=== PATIENT | female | born 1935 | race Caucasian/White ===

== ENCOUNTER 2017-11-06 14:55 | Inpatient (IN) | payer OTHER ==
[~2017-11-06] VITALS: Ht 170.2 cm; Wt 119.3 kg
--- NOTE | ~2017-11-06 | CON ---
[place], [place] REPORT OF CONSULTATION NAME: [facility]ON INGRAM [facility]: [id number] UNIT #: [id number] ROOM: 509 DOCTOR: DESTINI SANDERS MD BIRTHDATE: [birth year] DOS: 11/07/2017 HISTORY OF PRESENT ILLNESS: An 82-year-old patient who presented with chief complaint of dysuria and has been investigated and has had urine cultures done and results has been heavy gram-negative bacilli with greater than 100,000 population. Meanwhile, she has been complaining of nausea. Apparently, this nausea is chronic because she is telling me that she has a supply of antinausea medication at home. Chronically, she has been using. Lactic acid at the time of admission was 1. CBC: White blood cell was not elevated, indeed it was 4.4 with H and H of 10 and 37, microcytic indices. Comprehensive metabolic panel, GFR greater than 60. Electrolytes balance. GOT, GPT, liver function test normal. Chest x-ray was obtained normal. Chest, clear. Hemoglobin A1c was 4.8. PAST MEDICAL HISTORY: Associated with obesity, diabetes mellitus, chronic lower back pain, peripheral neuropathy, rectal CA history, spinal stenosis history, difficulty ambulation. I see some evidence of confusion. PAST SURGICAL HISTORY: Hysterectomy, cholecystectomy and lower extremities surgical procedures. SOCIAL HISTORY: Nonsmoker, nonalcohol consumer. FAMILY HISTORY: Noncontributory. ALLERGIES: To no known medications. MEDICATIONS: Has been reviewed including omeprazole, thyroid supplementation, iron supplementation and hyperlipidemia. REVIEW OF SYSTEMS: HEENT: Denies double vision, blurred vision. RESPIRATORY: Denies acute shortness of breath. CARDIOVASCULAR: Denies acute chest pain. DIGESTIVE SYSTEM: No hematemesis, no hematochezia. PHYSICAL EXAMINATION: GENERAL: Morbidly obese patient with vital signs stable. HEENT: Head normocephalic, nontraumatic. Mouth and buccal mucosa benign. NECK: Supple, no thyromegaly, no cervical lymphadenopathy. CHEST: Symmetric anatomy, equal expansion. No wheeze, no rhonchi. HEART: Normal sinus rhythm, no gallop, no murmur. ABDOMEN: Obese, large, soft. Intra-abdominal organs cannot be palpated not based on abdominal exam. EXTREMITIES: 1+ edema bilaterally was noticed. NEUROLOGIC: Alert and oriented to time, confusion, cannot recall, basic information. Labs were reviewed, records reviewed. [place], [place] REPORT OF CONSULTATION NAME: TRISTON INGRAM UNIT #: [id number] ROOM: 509 DOCTOR: TOMMY BANUELOS,DESTINI BIRTHDATE: [birth year] IMPRESSION: Urinary tract infection, chronic history of nausea, which could be associated with her established diagnosis of diabetes mellitus without complications. However, controlled by diet. Other adjunctive diagnoses as outlined in paragraph of past medical, surgical history. We are going to continue with the PPI. We are going to continue with antibiotic therapy for urinary tract infection and the issue of borderline anemia, mixed microcytic can be addressed as outpatient. Antiemetic at the present time is going to be Zofran 4 mg q. 6 hours if needed. Thank you very much indeed for your kind referral. DESTINI SANDERS MD CM:CONSTR:REPORT OF CONSULTATION 1532 11/08/17 0204 interface
[~2017-11-06 14:55] MED LIST changes: -ATIVAN0.5 MG PO; -CETIRIZINE10 MG PO; -FEOSOL325 MG PO; -LIOTHYRONINE S25 MC1 PO; -OMEPRAZOLE40 MG PO; -ZOFRAN8 M1 PO
[2017-11-06 15:07] VITALS: BP 125/67
[2017-11-06 15:30] LABS: BASO % 0.7 % (0.0-1.0); EOS # 0.1 10*3/uL (0.0-0.4); EOS % 1.6 % (1.0-4.0); HEMOGLOBIN 10.2 g/dl (12.0-16.0); LYMPH # 0.7 10*3/uL (1.3-4.4); LYMPH % 16.1 % (27.0-41.0); MEAN CELL VOLUME 92.5 fl (81.0-99.0); MEAN CORPUSCULAR HGB 25.5 pg (27.0-31.0); MEAN CORPUSCULAR HGB CONC 27.6 g/dl (33.0-37.0); MEAN PLATELET VOLUME 9.4 fl (9.6-12.3); MONO # 0.5 10*3/uL (0.1-1.0); MONO % 10.9 % (3.0-9.0); NEUT # 3.1 10*3/uL (2.3-7.9); NEUT % 70.2 % (47.0-73.0); PLATELET COUNT AUTOMATED 163 10*3/uL (130-400); RED CELL DISTRI WIDTH 14.9 % (0-14.5); WHITE BLOOD COUNT 4.4 10*3/uL (4.8-10.8)
[2017-11-06 15:45] LABS: BILIRUBIN 1+ (NEGATIVE); BLOOD 3+ (NEGATIVE); CLARITY CLOUDY (CLEAR); COLOR YELLOW (YELLOW); GLUCOSE NEGATIVE (NEGATIVE); KETONE NEGATIVE (NEGATIVE); LEUKO ESTERASE 3+ (NEGATIVE); NITRITE NEGATIVE (NEGATIVE); PH 6.5 (5.0-9.0)
[2017-11-06 15:46] LABS: ALBUMIN 2.3 gm/dl (3.1-4.5); ALKALINE PHOSPHATASE 130 U/L (45-117); BUN 13 mg/dl (7-24); CHLORIDE 102 mmol/L (98-107); CREATININE 1.02 mg/dL (0.55-1.02); SGOT/AST 14 IU/L (3-35); SGPT/ALT 8 U/L (12-78); SODIUM 142 mmol/L (136-145); TOTAL PROTEIN 7.7 gm/dL (6.4-8.2)
[2017-11-06 15:51] LABS: WBC TNTC wbc/hpf (0-5)
[2017-11-06] MEDS ORDERED: OMEPRAZOLE40 MG PO (17:29)
[2017-11-06] MEDS ORDERED: CETIRIZINE10 MG PO (17:36)
[2017-11-06] MEDS ORDERED: ATIVAN0.5 MG PO (17:36)
[2017-11-06] MEDS ORDERED: FEOSOL325 MG PO (17:37)
[2017-11-06] MEDS ORDERED: LIOTHYRONINE S25 MC1 PO (17:39)
[2017-11-06] MEDS ORDERED: ZOFRAN8 M1 PO (17:39)
[2017-11-06 18:25] VITALS: BP 134/52
[2017-11-07] VITALS: BP 113/71
[2017-11-07 06:25] LABS: BASO % 0.6 % (0.0-1.0); EOS # 0.1 10*3/uL (0.0-0.4); EOS % 1.9 % (1.0-4.0); HEMATOCRIT 34.9 % (37.0-47.0); HEMOGLOBIN 9.6 g/dl (12.0-16.0); LYMPH # 0.6 10*3/uL (1.3-4.4); LYMPH % 15.9 % (27.0-41.0); MEAN CELL VOLUME 92.8 fl (81.0-99.0); MEAN CORPUSCULAR HGB 25.5 pg (27.0-31.0); MEAN CORPUSCULAR HGB CONC 27.5 g/dl (33.0-37.0); MEAN PLATELET VOLUME 9.2 fl (9.6-12.3); MONO # 0.4 10*3/uL (0.1-1.0); MONO % 12.3 % (3.0-9.0); NEUT # 2.5 10*3/uL (2.3-7.9); PLATELET COUNT AUTOMATED 140 10*3/uL (130-400); RED BLOOD COUNT 3.76 10*6/uL (4.10-5.10); WHITE BLOOD COUNT 3.6 10*3/uL (4.8-10.8)
[2017-11-07 06:56] LABS: BUN 13 mg/dl (7-24); CHLORIDE 103 mmol/L (98-107); CHOLESTEROL 82 mg/dL (<200); CREATININE 0.99 mg/dL (0.55-1.02); HDL CHOLESTEROL 38 mg/dl (40-60); LDL CHOLESTEROL 30 mg/dL (9-159); PHOSPHOROUS 3.8 mg/dL (2.5-4.9); SODIUM 142 mmol/L (136-145); TRIGLYCERIDES 69 mg/dl (<150); VLDL CHOLESTEROL 14 mg/dL (6-40)
[2017-11-07 07:02] LABS: THYROID STIM HORMONE (HS) 0.045 uIU/ml (0.358-4.75)
[2017-11-07 08:00] VITALS: BP 118/57
[2017-11-07 08:28] LABS: VITAMIN D, 25-HYDROXY 62.9 ng/mL (30-100)
[2017-11-07 12:00] VITALS: BP 117/52
[2017-11-07 16:00] VITALS: BP 124/39
[2017-11-07 21:06] VITALS: BP 121/51
[2017-11-08 00:12] VITALS: BP 115/40
[2017-11-08 06:04] LABS: BUN 15 mg/dl (7-24); CHLORIDE 103 mmol/L (98-107); CREATININE 0.86 mg/dL (0.55-1.02); POTASSIUM 3.9 mmol/L (3.5-5.1); SODIUM 142 mmol/L (136-145)
[2017-11-08 06:11] LABS: BASO % 0.5 % (0.0-1.0); EOS # 0.1 10*3/uL (0.0-0.4); EOS % 2.2 % (1.0-4.0); HEMATOCRIT 32.9 % (37.0-47.0); LYMPH # 0.7 10*3/uL (1.3-4.4); LYMPH % 17.7 % (27.0-41.0); MEAN CELL VOLUME 93.7 fl (81.0-99.0); MEAN CORPUSCULAR HGB 25.6 pg (27.0-31.0); MEAN CORPUSCULAR HGB CONC 27.4 g/dl (33.0-37.0); MEAN PLATELET VOLUME 9.8 fl (9.6-12.3); MONO # 0.4 10*3/uL (0.1-1.0); MONO % 10.8 % (3.0-9.0); NEUT # 2.5 10*3/uL (2.3-7.9); NEUT % 68.3 % (47.0-73.0); PLATELET COUNT AUTOMATED 144 10*3/uL (130-400); RED BLOOD COUNT 3.51 10*6/uL (4.10-5.10); RED CELL DISTRI WIDTH 14.8 % (0-14.5); WHITE BLOOD COUNT 3.7 10*3/uL (4.8-10.8)
[2017-11-08 08:00] VITALS: BP 137/48
[2017-11-08 12:00] VITALS: BP 123/54
[2017-11-08 16:00] VITALS: BP 125/43
[2017-11-08 20:00] VITALS: BP 117/49
[2017-11-09 06:44] LABS: BUN 17 mg/dl (7-24); CHLORIDE 104 mmol/L (98-107); CREATININE 0.87 mg/dL (0.55-1.02); FREE T4 1.06 ng/dl (0.76-1.46); POTASSIUM 3.9 mmol/L (3.5-5.1); SODIUM 144 mmol/L (136-145)
[2017-11-09 06:50] LABS: THYROID STIM HORMONE (HS) 0.072 uIU/ml (0.358-4.75)
[2017-11-09 08:00] VITALS: BP 116/50
[2017-11-09 12:00] VITALS: BP 103/46
[2017-11-09 16:00] VITALS: BP 98/48
[2017-11-09 20:00] VITALS: BP 120/50
[2017-11-10] VITALS: BP 111/49
[2017-11-10 08:00] VITALS: BP 109/50
[2017-11-10 12:00] VITALS: BP 111/54
[2017-11-10 16:00] VITALS: BP 127/58
[2017-11-10 20:00] VITALS: BP 119/75
[2017-11-11] VITALS: BP 110/63
[2017-11-11 08:00] VITALS: BP 120/70
== END 2017-11-11 11:59 | disposition home or self-care (01) | DRG 189 ==
LOC: ED 14:55 → EDHOLD 16:18 → 5E 16:18 → ICCU 16:48 → 5E 17:01
PROVIDERS: Internal Medicine; Nurse Practitioner Family; Student in an Organized Health Care Education/Training Program
DX: J96.01 Acute respiratory failure with hypoxia (principal); E43 Unspecified severe protein-calorie malnutrition; E11.42 Type 2 diabetes mellitus with diabetic polyneuropathy; Z99.81 Dependence on supplemental oxygen; N39.0 Urinary tract infection, site not specified; Z68.41 Body mass index [BMI] 40.0-44.9, adult; Z84.1 Family history of disorders of kidney and ureter; E83.41 Hypermagnesemia; D64.9 Anemia, unspecified; E66.09 Other obesity due to excess calories; M48.061 Spinal stenosis, lumbar region without neurogenic claudication; M51.26 Other intervertebral disc displacement, lumbar region; R74.8 Abnormal levels of other serum enzymes; I10 Essential (primary) hypertension; J44.9 Chronic obstructive pulmonary disease, unspecified; G89.29 Other chronic pain; Z78.9 Other specified health status; Z98.891 History of uterine scar from previous surgery; Z79.899 Other long term (current) drug therapy; Z79.84 Long term (current) use of oral hypoglycemic drugs; Z90.49 Acquired absence of other specified parts of digestive tract; Z90.710 Acquired absence of both cervix and uterus; Z85.048 Personal history of other malignant neoplasm of rectum, rectosigmoid junction, and anus; Z82.0 Family history of epilepsy and other diseases of the nervous system

== ENCOUNTER → 2017-11-06 | Outpatient (CLI) | payer OTHER ==
[~2017-11-06] MED LIST: ATIVAN0.5 MG PO; AZITHROMYCIN250 MG PO; CELEXA20 MG PO; CETIRIZINE10 MG PO; COZAAR50 MG PO; Duoneb 3ML 3 MG/3 ML INH; FEOSOL325 MG PO; FOLIC ACID1 MG PO; LASIX20 MG PO; LIOTHYRONINE S25 MC1 PO; LIPITOR10 MG PO; METFORMIN500 MG PO; MUCINEX600 MG PO; NEURONTIN300 MG PO; OMEPRAZOLE40 MG PO; PREDNISONE10 MG PO; SYNTHROID,LEV200 MCG PO; TENORMIN50 MG PO; ZOFRAN8 M1 PO
== END | disposition home or self-care (01) ==
LOC: WOUNDCARE 08:40
DX: T81.89XA Other complications of procedures, not elsewhere classified, initial encounter (principal); E11.40 Type 2 diabetes mellitus with diabetic neuropathy, unspecified; I10 Essential (primary) hypertension; Z85.89 Personal history of malignant neoplasm of other organs and systems; Y83.8 Other surgical procedures as the cause of abnormal reaction of the patient, or of later complication, without mention of misadventure at the time of the procedure; Y92.89 Other specified places as the place of occurrence of the external cause

== ENCOUNTER 2018-07-27 17:47 | Emergency (ER) | payer OTHER ==
[~2018-07-27] VITALS: Ht 350 cm; Wt 94.3 kg
[~2018-07-27 17:47] MED LIST changes: +ANORO ELLIPTA1 EACH INH; +ATIVAN0.5 MG PO; +CETIRIZINE10 MG PO; +FEOSOL325 MG PO; +LIOTHYRONINE S25 MC1 PO; +MACRODANTIN100 M1 PO; +NYSTOP60 GM T; +OMEPRAZOLE40 MG PO; -SYNTHROID,LEV200 MCG PO; +Synthroid,Lev150 MCG PO; +TRAMADOL HCL50 MG PO; +ZOFRAN8 M1 PO
[2018-07-27 18:30] LABS: BASO % 0.5 % (0.0-1.0); EOS # 0.1 10*3/uL (0.0-0.4); HEMATOCRIT 37.7 % (37.0-47.0); HEMOGLOBIN 11.2 g/dl (12.0-16.0); LYMPH # 0.7 10*3/uL (1.3-4.4); LYMPH % 11.7 % (27.0-41.0); MEAN CELL VOLUME 91.3 fl (81.0-99.0); MEAN CORPUSCULAR HGB 27.1 pg (27.0-31.0); MEAN CORPUSCULAR HGB CONC 29.7 g/dl (33.0-37.0); MEAN PLATELET VOLUME 8.9 fl (9.6-12.3); MONO # 0.4 10*3/uL (0.1-1.0); MONO % 7.4 % (3.0-9.0); NEUT # 4.7 10*3/uL (2.3-7.9); NEUT % 79.1 % (47.0-73.0); PLATELET COUNT AUTOMATED 188 10*3/uL (130-400); RED BLOOD COUNT 4.13 10*6/uL (4.10-5.10); RED CELL DISTRI WIDTH 13.9 % (0-14.5)
[2018-07-27 18:37] LABS: BILIRUBIN 2+ (NEGATIVE); BLOOD 3+ (NEGATIVE); CLARITY TURBID (CLEAR); COLOR ORANGE (YELLOW); GLUCOSE 1+ (NEGATIVE); KETONE TRACE (NEGATIVE); LEUKO ESTERASE 3+ (NEGATIVE); NITRITE POSITIVE (NEGATIVE); SPECIFIC GRAVITY 1.015 (1.005-1.030); UROBILINOGEN >= 8.0 E.U./dl (0.2-1.0)
[2018-07-27 18:45] LABS: WBC TNTC wbc/hpf (0-5)
[2018-07-27 18:49] LABS: ALBUMIN 2.7 gm/dl (3.1-4.5); CREATININE 1.08 mg/dL (0.55-1.02); POTASSIUM 3.7 mmol/L (3.5-5.1); TOTAL PROTEIN 8.4 gm/dL (6.4-8.2)
[2018-07-27] MEDS ORDERED: MACROBID100 M1 PO (19:02)
[2018-07-27] MEDS ORDERED: ZOFRAN4 MG PO (19:02)
== END 2018-07-27 19:09 | disposition home or self-care (01) ==
LOC: ED 17:47
PROVIDERS: Nurse Practitioner Family
DX: N39.0 Urinary tract infection, site not specified (principal); I10 Essential (primary) hypertension; R00.0 Tachycardia, unspecified; E11.40 Type 2 diabetes mellitus with diabetic neuropathy, unspecified; J44.9 Chronic obstructive pulmonary disease, unspecified; E66.9 Obesity, unspecified; G89.29 Other chronic pain; Z79.899 Other long term (current) drug therapy

== ENCOUNTER 2018-07-30 15:22 | Inpatient (IN) | payer OTHER ==
[2018-07-30 15:22] VITALS: BP 146/71
[~2018-07-30 15:22] MED LIST changes: +MACROBID100 M1 PO; +ZOFRAN4 MG PO
[2018-07-30 16:00] VITALS: BP 123/82
[2018-07-30 16:04] LABS: BASO % 0.6 % (0.0-1.0); EOS # 0.1 10*3/uL (0.0-0.4); EOS % 1.8 % (1.0-4.0); HEMATOCRIT 38.9 % (37.0-47.0); HEMOGLOBIN 11.5 g/dl (12.0-16.0); LYMPH # 1.2 10*3/uL (1.3-4.4); LYMPH % 19.9 % (27.0-41.0); MEAN CELL VOLUME 90.9 fl (81.0-99.0); MEAN CORPUSCULAR HGB 26.9 pg (27.0-31.0); MEAN CORPUSCULAR HGB CONC 29.6 g/dl (33.0-37.0); MEAN PLATELET VOLUME 8.7 fl (9.6-12.3); MONO # 0.5 10*3/uL (0.1-1.0); MONO % 8.7 % (3.0-9.0); NEUT # 4.3 10*3/uL (2.3-7.9); NEUT % 68.7 % (47.0-73.0); PLATELET COUNT AUTOMATED 204 10*3/uL (130-400); RED BLOOD COUNT 4.28 10*6/uL (4.10-5.10); WHITE BLOOD COUNT 6.2 10*3/uL (4.8-10.8)
[2018-07-30 16:08] LABS: BILIRUBIN NEGATIVE (NEGATIVE); BLOOD 3+ (NEGATIVE); CLARITY CLOUDY (CLEAR); COLOR YELLOW (YELLOW); GLUCOSE NEGATIVE (NEGATIVE); KETONE NEGATIVE (NEGATIVE); LEUKO ESTERASE 2+ (NEGATIVE); NITRITE POSITIVE (NEGATIVE); UROBILINOGEN 0.2 E.U./dl (0.2-1.0)
--- NOTE | 2018-07-30 16:09 | NUR ---
LA 3.8 LTanner DOLL NOTIFIED.
--- NOTE | 2018-07-30 16:11 | NUR ---
PATIENT DENIES WANTING ANY WOUND PHOTOGRAPHS TAKEN. WOUND TO LEFT HIP DOUCMENTED IN WOUND SCREEN.
[2018-07-30 16:15] LABS: RBC TNTC rbc/hpf (0-2)
[2018-07-30 16:16] LABS: WBC TNTC wbc/hpf (0-5)
[2018-07-30 16:18] LABS: ALBUMIN 2.8 gm/dl (3.1-4.5); CREATININE 1.16 mg/dL (0.55-1.02); POTASSIUM 4.4 mmol/L (3.5-5.1); TOTAL PROTEIN 8.7 gm/dL (6.4-8.2)
[2018-07-30 17:25] VITALS: BP 123/82
--- NOTE | 2018-07-30 17:25 | NUR ---
Time: 1724 A 82 year old FEMALE admitted to 5E under services of CARMEN CHORPA DO. Pt. arrived via stretcher from ER. Chief complaint: UTI. RUEL KIRBY
--- NOTE | 2018-07-30 17:37 | NUR ---
PATIENT HAS 2 BAGS OF BELONGINGS WITH HER. A CUP.
--- NOTE | 2018-07-30 19:58 | NUR ---
DR VIDES CALLED FORWOUND STAGING AND ORDERS.
[2018-07-30 20:00] VITALS: BP 131/62
--- NOTE | 2018-07-30 20:19 | NUR ---
24 HR chart check completed.
--- NOTE | 2018-07-30 21:00 | NUR ---
RESTING IN BED WITH NO ACUTE DISTRESS NOTED. RESPIRATIONS EASY. LUNGS DIMINISHED, CLEAR. PULSE OX 97% RA. O2 APPLIED AT 2L PER HOME HS ROUTINE. IV FLUIDS INFUSING PER ORDER. CALL LIGHT WITHIN REACH. NO VOICED COMPLAINTS
--- NOTE | 2018-07-30 22:00 | NUR ---
REFUSED NYSTATIN STATING "I'M NOT RED".
[2018-07-31] VITALS: BP 119/52
--- NOTE | 2018-07-31 | NUR ---
SLEEPING. NO DISTRESS NOTED. RESPIRATIONS EASY. VSS. IV FLUIDS MAINTAINED X 1 LITER. CALL LIGHT WITHIN REACH. BED ALARM MAINTAINED FOR SAFETY
[2018-07-31 06:29] LABS: BASO % 0.8 % (0.0-1.0); EOS # 0.1 10*3/uL (0.0-0.4); EOS % 2.4 % (1.0-4.0); HEMATOCRIT 33.1 % (37.0-47.0); LYMPH # 0.8 10*3/uL (1.3-4.4); LYMPH % 21.5 % (27.0-41.0); MEAN CORPUSCULAR HGB 26.4 pg (27.0-31.0); MEAN CORPUSCULAR HGB CONC 28.4 g/dl (33.0-37.0); MEAN PLATELET VOLUME 8.7 fl (9.6-12.3); MONO # 0.4 10*3/uL (0.1-1.0); MONO % 10.9 % (3.0-9.0); NEUT # 2.4 10*3/uL (2.3-7.9); NEUT % 64.1 % (47.0-73.0); RED BLOOD COUNT 3.56 10*6/uL (4.10-5.10); RED CELL DISTRI WIDTH 14.1 % (0-14.5); WHITE BLOOD COUNT 3.8 10*3/uL (4.8-10.8)
--- NOTE | 2018-07-31 06:30 | NUR ---
RESTED THROUGHTOUT NIGHT WITH NOTED. RESPIRATIONS EASY. REFUSED 0600 ATIVAN PATIENT TAKES PRN AT HOME, UPDATED IN MED REC. CONTINUES TO DECLINE NYSTATION STATING IT "ISN'T NEEDED." CALL LIGHT WITHIN REACH. NO VOICED COMPLAINTS
[2018-07-31 06:42] LABS: HEMOGLOBIN 9.4 g/dl (12.0-16.0); PLATELET COUNT AUTOMATED 138 10*3/uL (130-400)
[2018-07-31 06:44] LABS: BUN 11 mg/dl (7-24); CHLORIDE 107 mmol/L (98-107); CREATININE 1.02 mg/dL (0.55-1.02); PHOSPHOROUS 3.5 mg/dL (2.5-4.9); POTASSIUM 3.9 mmol/L (3.5-5.1); SODIUM 143 mmol/L (136-145)
[2018-07-31 08:00] VITALS: BP 123/45
--- NOTE | 2018-07-31 08:15 | NUR ---
INFECTIOUS DISEASE WAS CALLED FOR CONSULT.
[2018-07-31 12:00] VITALS: BP 107/48
--- NOTE | 2018-07-31 12:59 | NUR ---
TRISTON INGRAM [id number] Please refer to the physician's history and physical for past medical history, comorbid conditions, and allergies. Diagnosis: UTI Shiv Score: 14,MODERATE RISK WOUND DESCRIPTIONS: Location of the wound: left hip Thickness: Full Size: 5.0cm x 0.5cm x 2.0cm Tunneling: none Undermining: none Sinus Tract: none Presence of Exudate: Serosangineous Amount: Moderate Color: Red, yellow Odor: None Periwound Skin Appearance: Normal Wound edges: approximated Pain (associated with wound): none at time of assessment How does patient state this happened? pt stated it started about 3 years ago. Patient stated visiting nurses cleanses the areas with soap and water and rinses it thoroughly and leaves it open to air. Surface the patient is resting on: Position Pro SKIN PREVENTION RECOMMENDATION: 1. Pressure redistribution support surface as appropriate 2. Elevate heels 3. Remove boots/TEDS every shift and reapply 4. Head of bed 30 degrees as tolerated 5. Assess nutrition and hydration 6. Manage moisture 7. Avoid the use of containment devices while in bed 8. Use absorptive products on surfaces limit layers of linens on bed 9. Turn and reposition every 1-2 hours in bed and every 1 hour in chair as tolerated 10. Weight shifts every 15 minutes while up in chair 11. Offloading with pillows or device to keep heels elevated off bed 12. Monitor skin at least every shift 13. Inspect under medical devices twice a day WOUND TREATMENT RECOMMENDATIONS: Imaging studies due to non-healing wound. Full thickness guidelines: Cleanse left hip with nss and apply sureprep around the wound therahoney to wound bed lightly pack with maxorb. Wound culture of left hip. Consult surgery for possible debridement.
--- NOTE | 2018-07-31 13:15 | NUR ---
Dr. Gardner notified of wound care recommendations.
--- NOTE | 2018-07-31 13:22 | NUR ---
Software Security Consultant in to talk to patient. Patient states lives at HOME with . There are NO steps in the home. Physician: VISITING PHYSICIAN [facility]acy: [facility] Home health services: [facility]KE CARE OF HER [facility]OUGH [facility] Patient's level of ADLs: INDEPENDENT Patient has working utilities: YES DME: [facility] Follow-up physician's appointment after d/c: VISITING PHYSICIAN WILL FOLLOW ON DISCHARGE PER PT Does patient want to access PORTAL?: NO Discharge plan PT STATES SHE LIVES AT HOME WITH HER AND HAS AIDS WHICH ARE HER DAUGHTERS [facility]OUGH [facility]. STATES SHE PLANS TO RETURN HOME ON DISCHARGE WITH NO FURTHER NEEDS.. TORIN KIRBY
--- NOTE | 2018-07-31 14:05 | NUR ---
Pt declined evaluation this date reporting she "just laid down" and did not wish to get back out of bed. She does report she has been nonambulatory for 2 years and utilizes power w/c for all function and is independnet with all transfers. Will attempt at later date. Nelida Jorge, PT
[2018-07-31 16:00] VITALS: BP 128/60
[2018-07-31] MEDS ORDERED: SYNTHROID,LEV175 MCG PO (16:27)
--- NOTE | 2018-07-31 18:25 | NUR ---
Discharge instructions reviewed with patient/family. Patient receptive and verbalizes understanding. Follow-up care arranged. Written instructions given to patient/family. SINAI DSOUZA
== END 2018-07-31 18:25 | disposition home or self-care (01) | DRG 689 ==
LOC: ED 15:22 → 5E 16:43 → EDHOLD 16:43 → 5E 16:54
PROVIDERS: Family Medicine; Nurse Practitioner Family; ADMIT Internal Medicine
DX: N30.91 Cystitis, unspecified with hematuria (principal); E43 Unspecified severe protein-calorie malnutrition; E87.2 Acidosis; B96.4 Proteus (mirabilis) (morganii) as the cause of diseases classified elsewhere; E66.01 Morbid (severe) obesity due to excess calories; E11.65 Type 2 diabetes mellitus with hyperglycemia; E03.9 Hypothyroidism, unspecified; J44.9 Chronic obstructive pulmonary disease, unspecified; G89.29 Other chronic pain; M54.9 Dorsalgia, unspecified; F41.8 Other specified anxiety disorders; F32.9 Major depressive disorder, single episode, unspecified; K21.9 Gastro-esophageal reflux disease without esophagitis; G62.9 Polyneuropathy, unspecified; I12.9 Hypertensive chronic kidney disease with stage 1 through stage 4 chronic kidney disease, or unspecified chronic kidney disease; E11.22 Type 2 diabetes mellitus with diabetic chronic kidney disease; Z99.81 Dependence on supplemental oxygen; Z68.41 Body mass index [BMI] 40.0-44.9, adult